=== PATIENT | female | born 1975 | race Caucasian/White ===

== ENCOUNTER 2018-11-12 16:30 | Outpatient (CLI) | payer OTHER ==
[2018-11-12 19:37] LABS: BILIRUBIN,URINE NEGATIVE (NEGATIVE); GLUCOSE, URINE (UA) NEGATIVE (NEGATIVE); KETONES,URINE (UA) NEGATIVE (NEGATIVE); LEUKOCYTE ESTERASE, URINE MODERATE (NEGATIVE); NITRITE,URINE NEGATIVE (NEGATIVE); OCCULT BLOOD,URINE TRACE-INTA (NEGATIVE); PROTEIN,URINE NEGATIVE (NEGATIVE); UROBILINOGEN,URINE 0.2 (NORMAL) E.U./dL (NORMAL)
[2018-11-12 20:15] LABS: BACTERIA,URINE Few /HPF (None Seen); CLARITY,URINE HAZY (CLEAR); RBC,URINE 0-5 /HPF (0-5); SQUAMOUS EPITHELIAL CELL,UR RARE Squamous (<= Few)
== END 2018-11-12 23:59 | disposition home or self-care (01) ==
LOC: LAB.R 16:30
PROVIDERS: ATTEND Physician Assistant Medical
DX: N39.0 Urinary tract infection, site not specified (principal)
CPT/HCPCS: 81001; 87086; 87181

== ENCOUNTER 2019-05-26 16:43 | Outpatient (CLI) | payer OTHER ==
--- NOTE | 2019-05-31 12:16 | Mammography Report ---
Reason: SCREENING MAMMO Procedure Date: 05/26/2019 Accession Number: [id number] / [id number] Procedure: PATRICA - Screening Mammo w/Roberto CPT Code: FULL RESULT: EXAM: Screening Mammo w/Roberto DATE: 05/26/2019 5:24 PM CLINICAL HISTORY: Screening encounter. History of early menses and family history of breast cancer in the mother at the age of 65. TECHNIQUE: (B) - Bilateral CC, laterally exaggerated CC, MLO views were obtained. COMPARISON: 01/23/2016. PARENCHYMAL PATTERN: (D) - The breast(s) demonstrate(s) heterogeneously dense fibroglandular parenchyma. FINDINGS: In the right central lower breast, defined only on 3-D imaging are to isodense nodules, the first 3.3 cm from the nipple measuring 1 cm and the second 5.3 cm from the nipple measuring 1 cm as seen on CC projection image 26 as well as on right MLO projection image 21 and 15 respectively. In the left lower central breast, similarly partially obscured but best seen on the left 3-D cc projection 4.7 cm from the nipple are 2 isodense focal asymmetry is measuring 1.0 x 1.6 cm in the outer lower breast and 1.4-0.9 cm in the lower inner breast respectively as seen on left CC image 38 and left MLO image 23. These bilateral findings are previously occult and they are not readily visible on today's large paddle 2-D projections. Therefore, additional clarification by spot views and ultrasound of both breasts is required. IMPRESSION: Incomplete examination. BI-RADS category 0. RECOMMENDATION: (ADDMU) - Additional views using both Mammography and Ultrasound recommended. Both breasts as described. BI-RADS CATEGORY: (0) - Incomplete Examination - need additional evaluation. STANDARD QUALIFYING STATEMENTS: 1. This examination was not reviewed with the aid of Computer-Aided Detection (CAD). 2. A negative or benign imaging report should not preclude biopsy if clinically suspicious findings are present. 3. Dense breasts may obscure an underlying neoplasm. 4. This examination was reviewed with the aid of 3D breast imaging (tomosynthesis).
== END 2019-05-26 16:44 | disposition home or self-care (01) ==
LOC: DI 16:43
DX: Z12.31 Encounter for screening mammogram for malignant neoplasm of breast (principal); Z80.3 Family history of malignant neoplasm of breast
CPT/HCPCS: 77063; 77067

== ENCOUNTER 2019-06-15 09:54 | Outpatient (CLI) | payer OTHER ==
--- NOTE | 2019-06-15 12:38 | Mammography Report ---
Reason: ABNORMAL MAMMOGRAM Procedure Date: 06/15/2019 Accession Number: [id number] / [id number] Procedure: PATRICA - Diag Special Views Dig Bilat CPT Code: FULL RESULT: EXAM: Diag Special Views Dig Bilat DATE: 06/15/2019 11:05 AM CLINICAL HISTORY: Diagnostic examination. The patient is recalled from screening for bilateral well-circumscribed nodules. TECHNIQUE: (B) - Bilateral spot CC and spot MLO as well as ML images are obtained. Bilateral focused ultrasound is performed. COMPARISON: 05/26/2019 through 01/23/2016. PARENCHYMAL PATTERN: (D) - The breast(s) demonstrate(s) heterogeneously dense fibroglandular parenchyma. FINDINGS: Spot imaging does not further characterize the identified nodules. Focused bilateral breast ultrasound is performed which confirms multiple wider than tall simple appearing typically benign cysts with increased through transmission. In the right breast at the 8:00 position 6 cm from the nipple is a 0.8 x 0.4 x 0.9 cm cyst immediately adjacent to a 1.2 x 0.5 x 1.4 cm cyst. In the left breast in the upper outer quadrant 4 cm from the nipple on multiple simple appearing cysts the largest of which measures 1.1 x 0.7 x 1.2 cm with immediately adjacent cyst measuring 0.9 x 0.6 x 0.8 cm. These correspond to mammographic findings. There are no suspicious masses, calcifications, or areas of distortion. IMPRESSION: Benign findings. BI-RADS category 2. RECOMMENDATION: (ANNUAL) - Recommend routine annual screening mammography. BI-RADS CATEGORY: (2) - Benign Findings. STANDARD QUALIFYING STATEMENTS: 1. This examination was not reviewed with the aid of Computer-Aided Detection (CAD). 2. A negative or benign imaging report should not preclude biopsy if clinically suspicious findings are present. 3. Dense breasts may obscure an underlying neoplasm. 4. This examination was reviewed with the aid of 3D breast imaging (tomosynthesis).
== END 2019-06-15 09:55 | disposition home or self-care (01) ==
LOC: DI 09:54
PROVIDERS: ATTEND Physician Assistant
DX: N63.20 Unspecified lump in the left breast, unspecified quadrant (principal); N63.10 Unspecified lump in the right breast, unspecified quadrant; R92.8 Other abnormal and inconclusive findings on diagnostic imaging of breast
CPT/HCPCS: 76642; 77066

== ENCOUNTER 2019-08-31 10:06 | Outpatient (CLI) | payer OTHER ==
--- NOTE | 2019-08-31 10:10 | XRAY Report ---
Reason: LEFT ANKLE PAIN Procedure Date: 08/31/2019 Accession Number: [id number] / [id number] Procedure: WCP - Ankle 3 View LT CPT Code: FULL RESULT: EXAM: LEFT ANKLE RADIOGRAPHY EXAM DATE: 08/31/2019 10:06 AM. CLINICAL HISTORY: Chronic left ankle pain. COMPARISON: None. TECHNIQUE: 3 views. FINDINGS: Bones: Minimal inferior calcaneal spurring. No fractures or bone lesions. Joints: Normal. No effusion. No subluxations. The ankle mortise is normally aligned. Soft Tissues: Normal. No soft tissue swelling. IMPRESSION: No advanced degenerative changes and no fracture or dislocation. RADIA
== END 2019-08-31 23:59 | disposition home or self-care (01) ==
LOC: DI.WCP 10:06 → EDSTATUS 12:34 → DI.WCP 23:59
PROVIDERS: ATTEND Physician Assistant
DX: M25.572 Pain in left ankle and joints of left foot (principal)

== ENCOUNTER 2020-01-29 08:58 | Outpatient (CLI) | payer OTHER | END 2020-01-29 08:59 | disposition home or self-care (01) | LOC: DI 08:58 | PROVIDERS: ATTEND Physician Assistant | DX: R07.89 Other chest pain (principal); Z82.49 Family history of ischemic heart disease and other diseases of the circulatory system | CPT/HCPCS: 93306 ==

== ENCOUNTER 2020-06-08 13:47 | Outpatient (CLI) | payer OTHER ==
--- NOTE | 2020-06-08 16:04 | CARDIAC PROCEDURE NOTE ---
DATE OF SERVICE: 06/08/2020 Physician: Romina Samson MD, [facility] INDICATION: Chest pain. CARDIAC RISK FACTORS: Family history of heart disease (grandmother had CA at age under 40, mother had a cardiac arrest and has a defibrillator), possibly untreated hypertension. DESCRIPTION OF PROCEDURE: After signing informed consent, the patient underwent a Cory-protocol treadmill stress test. No imaging was ordered with this test. RESTING HEART RATE: 84. PEAK HEART RATE: 158 (90% predicted maximum heart rate for age). RESTING BLOOD PRESSURE: 159/111. PEAK BLOOD PRESSURE: 201/86. The patient exercised for 6 minutes on a Cory-protocol treadmill. She achieved a peak heart rate of 158 (90% PMHR) and 7.1 METS. The patient had mild shortness of breath. No chest pain occurred. Oxygen saturation was 97-98% on room air throughout the test. The patient rated her perceived exertion at 14/20 on the Bryon scale at peak. RESTING EKG: Normal sinus rhythm, within normal limits. EKG AT PEAK: Diffuse upsloping ST segment depressions. SUMMARY: 1. Normal resting electrocardiogram. 2. No chest pain developed with exercise. 3. Nonspecific EKG changes, not suggestive of ischemia, occur with exercise at a good level of stress. 4. No imaging was ordered with this test. 5. Blood pressure was poorly controlled throughout the test (see above) and needs medical management for better control. cc: Maggie Mayen PA-C TD: 06/08/2020 15:06 MTDD
== END 2020-06-08 13:48 | disposition home or self-care (01) ==
LOC: DI 13:47
PROVIDERS: ATTEND Physician Assistant
DX: I10 Essential (primary) hypertension (principal); Z82.49 Family history of ischemic heart disease and other diseases of the circulatory system
CPT/HCPCS: 93017

== ENCOUNTER 2020-09-27 09:33 | Outpatient (CLI) | payer OTHER ==
--- NOTE | 2020-09-28 13:22 | Mammography Report ---
BILATERAL DIGITAL SCREENING MAMMOGRAM 3D/2D: 09/27/2020 CLINICAL: Family history of breast cancer. Routine screening. Comparison is made to exams dated: 06/15/2019 ultrasound, 06/15/2019 mammogram, and 01/23/2016 mammogram - [facility]. The tissue of both breasts is heterogeneously dense. This may lower the sensitivity of mammography. No significant masses, calcifications, or other findings are seen in either breast. There has been no significant interval change. IMPRESSION: NEGATIVE There is no mammographic evidence of malignancy. A 1 year screening mammogram is recommended. This exam was interpreted at Station ID: [id number]. NOTE: For mammograms, a report in lay terms will be sent to the patient. Approximately 15% of breast malignancies will not be visualized mammographically. In the management of a palpable breast mass, a negative mammogram must not discourage biopsy of a clinically suspicious lesion. Electronically Signed By: Sarah mckeon/jason:09/27/2020 12:09:55 ACR BI-RADS Category 1: Negative 3341F PARENCHYMAL PATTERN: (D) - The breast(s) demonstrate(s) heterogeneously dense fibroglandular ani vyas. BI-RADS CATEGORY: (1) - 1 RECOMMENDATION: (ANNUAL) - Recommend routine annual screening mammography. [id number] 1 year screening LATERALITY: (B)
== END 2020-09-27 09:34 | disposition home or self-care (01) ==
LOC: DI.N 09:33
DX: Z12.31 Encounter for screening mammogram for malignant neoplasm of breast (principal); Z80.3 Family history of malignant neoplasm of breast
CPT/HCPCS: 77063; 77067

== ENCOUNTER 2020-09-27 09:57 | Outpatient (CLI) | payer OTHER ==
[2020-09-27 12:16] LABS: BASOPHILS # (AUTO) 0.1 10^3/uL (0.0-0.1); BASOPHILS % (AUTO) 1.1 %; EOSINOPHILS # (AUTO) 0.1 10^3/uL (0.0-0.7); EOSINOPHILS % (AUTO) 1.8 %; HGB - HEMOGLOBIN 13.9 g/dL (12.0-16.0); LYMPHOCYTES # (AUTO) 1.4 10^3/uL (1.5-3.5); LYMPHOCYTES % (AUTO) 31.9 %; MEAN CORPUSCULAR HEMOGLOBIN 28.8 pg (27.0-31.0); MEAN CORPUSCULAR HGB CONC 33.3 g/dL (32.0-36.0); MEAN CORPUSCULAR VOLUME 86.5 fL (81.0-99.0); MEAN PLATELET VOLUME 11.5 fL (7.9-10.8); MONOCYTES # (AUTO) 0.4 10^3/uL (0.0-1.0); MONOCYTES % (AUTO) 8.7 %; NEUTROPHILS # (AUTO) 2.5 10^3/uL (1.5-6.6); NEUTROPHILS % (AUTO) 56.3 %; PLT - PLATELET COUNT 276 10^3/uL (130-450); RED BLOOD COUNT 4.82 10^6/uL (4.20-5.40); RED CELL DISTRIBUTION WIDTH 12.8 % (12.0-15.0); WHITE BLOOD COUNT 4.4 x10^3/uL (4.8-10.8)
[2020-09-27 14:23] LABS: ALBUMIN 4.2 g/dL (3.2-5.5); ALBUMIN/GLOBULIN RATIO 1.4 (1.0-2.2); ALKALINE PHOSPHATASE 39 IU/L (42-121); ALT ALANINE AMINOTRANSFERASE < 10 IU/L (10-60); AST ASPARTATE AMINOTRANSFERASE 17 IU/L (10-42); BILIRUBIN,TOTAL 0.7 mg/dL (0.2-1.0); BUN - BLOOD UREA NITROGEN 11 mg/dL (6-20); CARBON DIOXIDE - CO2 25 mmol/L (21-32); CHLORIDE 100 mmol/L (101-111); CHOL/HDL RATIO 5.2 (<4.4); CHOLESTEROL 236 mg/dL; CREATININE 0.8 mg/dL (0.4-1.0); GLUCOSE 94 mg/dL (70-100); HDL CHOLESTEROL 45 mg/dL; LDL CHOLESTEROL,CALCULATED 169 mg/dL; LDL/HDL RATIO 3.8 (<4.4); SODIUM 138 mmol/L (135-145); TOTAL PROTEIN 7.2 g/dL (6.7-8.2); VLDL CHOLESTEROL 22 mg/dL
== END 2020-09-27 09:58 | disposition home or self-care (01) ==
LOC: LAB.N 09:57
PROVIDERS: ATTEND Physician Assistant
DX: Z00.00 Encounter for general adult medical examination without abnormal findings (principal)
CPT/HCPCS: 36415; 80053; 80061; 83036; 83721; 84443; 85025

== ENCOUNTER 2020-09-27 18:41 | Outpatient (CLI) | payer OTHER ==
--- NOTE | 2020-09-28 09:11 | Ultrasound Report ---
PROCEDURE: Pelvic w/Transvaginal INDICATIONS: MENORRHAGIA TECHNIQUE: Real-time scanning was performed of the pelvic organs, with image documentation. Additional endovagi nal scanning was necessary due to incomplete visualization of the adnexal and endometrial structures by transabdominal scanning. COMPARISON: None. FINDINGS: Transabdominal scanning: Limited scanning through the kidneys shows no hydronephrosis. No pathologi c free abdominal or pelvic fluid. Endovaginal scanning: Uterus: Uterus is normal in size at 9.6 x 4.7 x 5.4 cm. The endometrium measures 14 mm in combined thickness. The uterus is anteverted. Uterine echotexture is mildly heterogenous. A nabothian cyst is identified. Ovaries: The right ovary measures 3.4 x 1.3 x 2.6 cm. There are less than 12 follicles. The left ova ry measures 4.1 x 2.4 x 3.2 cm. There are less than 12 follicles. A dominant follicle on the left evaristo sures 1.7 x 1.6 x 1.8 cm. No adnexal free fluid. IMPRESSION: 1. No acute ultrasound abnormality. 2. Endometrial thickness is 14 mm which is at the upper limits of normal for a premenopausal woman du ring the secretory phase. 3. No evidence of polycystic ovarian syndrome. Reviewed by: Johnie Phelps on 09/28/2020 9:10 AM [facility] Approved by: Johnie Phelps on 09/28/2020 9:10 AM [facility] Station ID: [id number]
== END 2020-09-27 18:42 | disposition home or self-care (01) ==
LOC: DI 18:41
PROVIDERS: ATTEND Physician Assistant
DX: Z00.00 Encounter for general adult medical examination without abnormal findings (principal); N92.0 Excessive and frequent menstruation with regular cycle; R93.89 Abnormal findings on diagnostic imaging of other specified body structures
CPT/HCPCS: 36415; 76830; 76856; 80053; 80061; 83036; 83721; 84443; 85025

== ENCOUNTER 2020-11-06 08:00 | Outpatient (CLI) | payer OTHER ==
[2020-11-09 09:19] LABS: CLARITY,URINE CLEAR (CLEAR); LEUKOCYTE ESTERASE, URINE MODERATE (NEGATIVE); NITRITE,URINE NEGATIVE (NEGATIVE); PROTEIN,URINE NEGATIVE (NEGATIVE); UROBILINOGEN,URINE 0.2 (NORMAL) E.U./dL (NORMAL)
[2020-11-09 09:21] LABS: BILIRUBIN,URINE NEGATIVE (NEGATIVE); GLUCOSE, URINE (UA) NEGATIVE (NEGATIVE); KETONES,URINE (UA) NEGATIVE (NEGATIVE); OCCULT BLOOD,URINE NEGATIVE (NEGATIVE)
[2020-11-09 09:22] LABS: BACTERIA,URINE Few /HPF (None Seen); RBC,URINE None Seen /HPF (0-5); SQUAMOUS EPITHELIAL CELL,UR FEW Squamous (<= Few)
== END 2020-11-06 23:59 | disposition home or self-care (01) ==
LOC: LAB.N 08:00
PROVIDERS: ATTEND Family Medicine
DX: N39.0 Urinary tract infection, site not specified (principal)
CPT/HCPCS: 81001; 81003; 87086; 87181

== ENCOUNTER 2021-12-02 21:11 | Emergency (ER) | payer OTHER ==
--- NOTE | 2021-12-02 21:38 | ED Physician Documentation ---
History of Present Illness - Stated complaint Stated Complaint: LT ARM PX - Chief complaint Chief Complaint: Ext Problem - History obtained from History obtained from: Patient - History of Present Illness Timing: Enter time (05:15), Today Pain level now: 2 Improved by: no ameliorating factors Worsened by: no exacerbating factors - Additonal information Additional information: woke from sleep at approximately 5:15 AM this morning with pain left lateral aspect of elbow and forearm, radiating down to fingers, predominantly thumb an second and third digits. denies injury, denies h/o similar symptoms. She is right hand dominant. Denies weakness, numbness. Review of Systems Cardiac: reports: Reviewed and negative Skin: denies: Rash Musculoskeletal: reports: Extremity pain. denies: Neck pain, Extremity swelling Neurologic: denies: Focal weakness, Numbness PD PAST MEDICAL HISTORY - Past Medical History Past Medical History: No - Present Medications Home Medications: Ambulatory Orders Medication Instructions Recorded Confirmed Acyclovir 400 mg PO BID 12/02/21 12/02/21 - Allergies Allergies/Adverse Reactions: Allergies Allergy/AdvReac Type Severity Reaction Status Date / Time meloxicam Allergy Edema Verified 12/02/21 21:20 PD ED PE NORMAL - Vitals Vital signs reviewed: Yes - General General: Alert and oriented X 3, No acute distress, Well developed/nourished - Neck Neck: No bony TTP - Cardiac Cardiac: RRR, No murmur - Derm Derm: No rash - Extremities Extremities: No edema - Neuro Neuro: No motor deficit (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 distribution would suggest median nerve impingement. emergent testing is not indicated at this time, but I advised her to follow up with PMD if symptoms persist, as testing might be indicated in outpatient setting (such as EMG). Although she denies any chest pain, she has significant family cardiac history and thus screening EKG performed (this is without remarkable / concerning findings) .Differential discussed with patient , advised to return if worse, ibuprofen for discomfort, and follow up with PMD Departure - Departure Disposition: 01 Home, Self Care Clinical Impression: Median nerve compression Condition: Good Instructions: ED Carpal Tunnel Follow-Up: Maggie Mayen PA [Primary Care Provider] - Discharge Date/Time: 12/02/21 22:31
[2021-12-02 22:32] VITALS: BP 130/88
== END 2021-12-02 22:31 | disposition home or self-care (01) ==
LOC: ED 21:11
DX: G56.02 Carpal tunnel syndrome, left upper limb (principal); Z82.49 Family history of ischemic heart disease and other diseases of the circulatory system
CPT/HCPCS: 93005; 99282; 99283

== ENCOUNTER 2022-12-04 15:26 | Outpatient (CLI) | payer OTHER ==
--- NOTE | 2022-12-06 11:08 | Mammography Report ---
BILATERAL DIGITAL SCREENING MAMMOGRAM 3D/2D: 12/04/2022 CLINICAL: Family history of breast cancer. Routine screening. Comparison is made to exams dated: 09/27/2020 mammogram, 06/15/2019 ultrasound, 06/15/2019 mammogram, and 01/23/2016 mammogram - [facility]. Both breasts are heterogeneously dense, which may obscure small masses (category c / 51-75% glandular tissue). No significant masses, calcifications, or other findings are seen in either breast. There has been no significant interval change. IMPRESSION: NEGATIVE There is no mammographic evidence of malignancy. A 1 year screening mammogram is recommended. Based on Tyrer-Cuzick model (a risk assessment model), the patient's lifetime risk is 21.0% and her 1 0 year risk is 4.4%. If a patient has an elevated risk, a more comprehensive evaluation should be con sidered and/or a referral to a genetic counselor. The [employer], [employer], and NCCN Guidelines advise the consideration of Breast MRI as an adjunct to screening mammog stephanie in patients whose "Lifetime risk to develop breast cancer" is 20% or higher. This exam was interpreted at Station ID: [id number]. NOTE: For mammograms, a report in lay terms will be sent to the patient. Approximately 15% of breast malignancies will not be visualized mammographically. In the management of a palpable breast mass, a negative mammogram must not discourage biopsy of a clinically suspicious lesion. Electronically Signed By: Juani amaya/jason:12/05/2022 19:09:10 ACR BI-RADS Category 1: Negative 3341F PARENCHYMAL PATTERN: (D) - The breast(s) demonstrate(s) heterogeneously dense fibroglandular parenchy ma. BI-RADS CATEGORY: (1) - 1 RECOMMENDATION: (ANNUAL) - Recommend routine annual screening mammography. [id number] 1 year screening LATERALITY: (B)
== END 2022-12-04 15:27 | disposition home or self-care (01) ==
LOC: DI.N 15:26
PROVIDERS: ATTEND Family Medicine
DX: Z12.31 Encounter for screening mammogram for malignant neoplasm of breast (principal); Z80.3 Family history of malignant neoplasm of breast

== ENCOUNTER 2023-12-30 15:48 | Outpatient (CLI) | payer OTHER ==
--- NOTE | 2023-12-31 10:34 | Ultrasound Report ---
PROCEDURE: Pelvic w/Transvaginal INDICATIONS: PELVIC PAIN TECHNIQUE: Real-time scanning was performed of the pelvic organs, with image documentation. Additional endovagi nal scanning was necessary due to incomplete visualization of the adnexal and endometrial structures by transabdominal scanning. COMPARISON: Pelvic ultrasound 09/27/2020. FINDINGS: Uterus: Uterus is anteverted and mildly enlarged at 10.8 x 4.6 x 5.2 cm. The myometrium is heterogen eous. The endometrium measures 16 mm in combined thickness. Echogenic lesion is seen within the sup erior endometrium, measuring 1.9 x 1.6 x 1.4 cm. No definite internal vascularity is seen. Ovaries: The right ovary measures 2.6 x 1.4 x 2.1 cm, with a calculated ovarian volume of 4.0 cc. T he left ovary measures 4.6 x 2.8 x 4.7 cm, with a calculated ovarian volume of 31.8 cc. Multiple simp le appearing left ovarian cyst is seen, largest of which measures up to 2.3 cm in size. The ovaries h ave a normal sonographic appearance. Less than 12 follicles can be seen in each ovary. No adnexal m asses are seen. No cystic lesions measuring greater than 3 cm. Other: No pathologic free abdominal or pelvic fluid. IMPRESSION: 1.Echogenic 1.9 cm lesion at the superior aspect of the endometrium without internal vascularity, whi ch may represent blood products versus an endometrial polyp or focal endometrial hyperplasia. Recomme nd Gynecology consultation. 2.Left ovary is enlarged by multiple simple cysts/follicles. Reviewed by: Gilbert Danielle MD on 12/31/2023 10:33 AM [facility] Approved by: Gilbert Danielle MD on 12/31/2023 10:33 AM PST Station ID: [id number]
== END 2023-12-30 15:49 | disposition home or self-care (01) ==
LOC: DI 15:48
PROVIDERS: ATTEND Family Medicine
DX: R10.2 Pelvic and perineal pain (principal); N92.0 Excessive and frequent menstruation with regular cycle; R93.89 Abnormal findings on diagnostic imaging of other specified body structures; N83.8 Other noninflammatory disorders of ovary, fallopian tube and broad ligament

== ENCOUNTER 2024-02-21 14:27 | Outpatient (CLI) | payer OTHER ==
[2024-02-21 18:43] LABS: BASOPHILS # (AUTO) 0.1 10^3/uL (0.0-0.1); BASOPHILS % (AUTO) 1.6 %; EOSINOPHILS # (AUTO) 0.1 10^3/uL (0.0-0.7); EOSINOPHILS % (AUTO) 1.4 %; HCT - HEMATOCRIT 42.1 % (37.0-47.0); HGB - HEMOGLOBIN 13.9 g/dL (12.0-16.0); LYMPHOCYTES # (AUTO) 1.9 10^3/uL (1.5-3.5); LYMPHOCYTES % (AUTO) 33.2 %; MEAN CORPUSCULAR HEMOGLOBIN 28.6 pg (27.0-31.0); MEAN CORPUSCULAR VOLUME 86.6 fL (81.0-99.0); MEAN PLATELET VOLUME 11.5 fL (7.9-10.8); MONOCYTES # (AUTO) 0.4 10^3/uL (0.0-1.0); MONOCYTES % (AUTO) 7.7 %; NEUTROPHILS # (AUTO) 3.2 10^3/uL (1.5-6.6); NEUTROPHILS % (AUTO) 55.8 %; PLT - PLATELET COUNT 300 10^3/uL (130-450); RED BLOOD COUNT 4.86 10^6/uL (4.20-5.40); RED CELL DISTRIBUTION WIDTH 12.7 % (12.0-15.0); WHITE BLOOD COUNT 5.8 x10^3/uL (4.8-10.8)
== END 2024-02-21 14:28 | disposition home or self-care (01) ==
LOC: LAB.N 14:27
PROVIDERS: ATTEND Obstetrics & Gynecology
DX: Z01.812 Encounter for preprocedural laboratory examination (principal); N93.9 Abnormal uterine and vaginal bleeding, unspecified
CPT/HCPCS: 36415; 85025

== ENCOUNTER 2024-02-24 07:21 | Day surgery (SDC) | payer OTHER ==
[2024-02-24] MEDS ORDERED: BUPIVACAINE 0.5% PF 10 ML VIAL ONE (07:28)
[2024-02-24] MEDS ORDERED: LIDOCAINE 1%-EPI 1:100000 20 ML MDV ONE (07:28)
[2024-02-24] MEDS ORDERED: SILVER NITRATE APPLICATOR TOP ONE (07:28)
[2024-02-24] MEDS: LACTATED RINGERS 1,000 ML IV ONE ×2 (07:43→09:17)
[2024-02-24 07:49] LABS: HCG UR QUAL NEGATIVE
--- NOTE | 2024-02-24 07:53 | ANESTHESIA ---
Pre-Anesthesia VS, & Labs - Diagnosis abnormal uterine bleeding - Procedure hysteroscopy D&C Height: 4 ft 11 in - NPO >8 hours - Is Patient ?: No Home Medications and Allergies Home Medications: Ambulatory Orders Spironolactone [Aldactone] 50 mg PO DAILY 02/20/24 Spironolactone [Aldactone] 50 mg PO DAILY 02/20/24 Allergies/Adverse Reactions: Allergies Allergy/AdvReac Type Severity Reaction Status Date / Time meloxicam Allergy Edema Verified 02/24/24 06:25 Anes History & Medical History - Anesthetic History Anesthesia Complications: reports: No previous complications Family history of Anesthesia Complications: Denies Family history of Malignant Hyperthermia: Denies - Medical History Cardiovascular: reports: Hypertension Pulmonary: reports: None Gastrointestinal: reports: None Urinary: reports: None Neuro: reports: None Musculoskeletal: reports: None Endocrine/Autoimmune: reports: None Skin: reports: None Psychosocial: reports: No issues indicated - Surgical History General: reports: Other Eyes Ears Nose Throat (EENT): reports: Other Gynecologic: reports: Tubal ligation Exam General: Alert, Oriented x3, Cooperative Dental: WNL Mouth Openin Fingerbreadth Neck Mobility: Normal Mallampati classification: I Thyromental Distance: 4-6 cm Respiratory: Lungs clear Cardiovascular: Regular rate Plan Anesthesia Type: General Consent for Procedure(s) Verified and Reviewed: Yes Code Status: Attempt Resuscitation ASA classification: 2-Mild systemic disease Is this case an emergency?: No
[2024-02-24] MEDS ORDERED: ePHEDrine 50 MG/ML VIAL IVP PRN (08:08)
[2024-02-24] MEDS ORDERED: ATROPINE ABBOJECT 1 MG/10 ML SYRINGE IVP PRN (08:08)
[2024-02-24] MEDS ORDERED: HYDROmorphone 0.5 MG/0.5 ML SYRINGE IVP PRN (08:08)
[2024-02-24] MEDS ORDERED: fentaNYL 100 MCG/2 ML VIAL IVP PRN (08:08)
[2024-02-24] MEDS ORDERED: ONDANSETRON 4 MG/2 ML VIAL IVP PRN (08:08)
[2024-02-24] MEDS ORDERED: METOCLOPRAMIDE 10 MG/2 ML VIAL IVP PRN (08:08)
[2024-02-24] MEDS ORDERED: MORPHINE 2 MG/ML CARPUJECT IVP PRN (08:08)
[2024-02-24] MEDS ORDERED: NALOXONE 0.4 MG/ML VIAL IVP PRN (08:08)
--- NOTE | 2024-02-24 08:31 | HISTORY & PHYSICAL EXAMINATION ---
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
[2024-02-24] MEDS ORDERED: MIDAZOLAM 2 MG/2 ML VIAL ONE (08:34)
[2024-02-24] MEDS ORDERED: fentaNYL 100 MCG/2 ML VIAL ONE (08:34)
[2024-02-24] MEDS ORDERED: PROPOFOL 200 MG/20 ML VIAL IVP ONE (08:34)
[2024-02-24] MEDS ORDERED: LIDOCAINE-PF 2% 10 ML AMP SUBQ ONE (08:34)
[2024-02-24] MEDS ORDERED: LACTATED RINGERS 1,000 ML IV SCH (09:00)
[2024-02-24] MEDS ORDERED: ONDANSETRON 4 MG/2 ML VIAL ONE (09:07)
--- NOTE | 2024-02-24 09:19 | OPERATIVE REPORT ---
Operative Report - General Procedure Date: 02/24/24 Planned Procedure: Hysteroscopy, D&C, polypectomy Pre-Op Diagnosis: Abnormal uterine bleeding Procedure Performed: Hysteroscopy, D&C, polypectomy Post Op Diagnosis: Abnormal Uterine Bleeding - Procedure Note Primary Surgeon: Ramos Schafer MD Anesthesia Provider: Christa Knott CRNA Anesthesia Technique: General LMA IV Fluids (mL): 300 Estimated Blood Loss (mL): 10 Urine Output (mL): 0 (Voided prior to procedure) Findings: Uterus normal in size. Cervix non-stenotic. Proliferative appearing endometrium with polypoid mass in the posterior left uterine wall. Possible polyp in the anterior right. Complications: None - Other Other Information/Narrative: Patient was taken to the procedure room and placed in dorsal lithotomy position. Hibiclens was used to clean the operative area.Time out was taken. Ely speculum was palced in the vagina and the cervix was visualized. The anterior lip the cervix was grasped with a single-tooth tenaculum. 5ml of local anesthesia was injeced near the uterosacral ligaments. The cervix was non- stenotic and allowed the easy passage of dilators. Hysteroscope was then used to hydrodilate using normal saline distention media. Hysteroscope was advanced without difficulty using hydrodistention. Cervical canal was noted to have no abnormalities. Upon entry into the internal cervical os there was noted to be proliferative endometrium within the uterus. She did have a polypoid appearing lesion on the posterior left edge, near the entrance of the cervical os. She had another anterior right mass that was polypoid versus proliferative material. These were dissected with the MyoSure device. Bilateral tubal ostia were noted. Hysteroscope was then removed. A sharp curetting was then performed, attempted to sample all areas of the uterus. This was collected on a Telfa. Tenaculum was then removed from the cervix noted to be hemostatic. All instruments removed from the vagina Fluid deficit 55 mL.
[2024-02-24 10:09] VITALS: O2SAT 99
[2024-02-24 10:39] VITALS: BP 123/84
--- NOTE | 2024-02-24 11:20 | ANESTHESIA POST OP EVALUATION ---
Anesthesia Post Eval - Post Anesthesia Eval Vitals: Last Vital Signs Temp 36.3 C L 02/24/24 10:00 Pulse 63 02/24/24 10:15 Resp 16 02/24/24 10:15 BP 123/84 H 02/24/24 10:15 Pulse Ox 99 02/24/24 10:15 O2 Flow Rate CV Function Including HR & BP: Stable Pain Control: Satisfactory Nausea & Vomiting: Negative Mental Status: Baseline Respiratory Status: Airway Patent Hydration Status: Satisfactory Anesthesia Complications: None
== END 2024-02-24 07:22 | disposition home or self-care (01) ==
LOC: SDS 07:21
PROVIDERS: ATTEND Obstetrics & Gynecology
PROC: 0UB98ZZ Excision of Uterus, Via Natural or Artificial Opening Endoscopic (ICD-10-PCS; 2024-02-24)
PROC: 0UDB8ZZ Extraction of Endometrium, Via Natural or Artificial Opening Endoscopic (ICD-10-PCS; principal; 2024-02-24 08:30)
DX: N93.9 Abnormal uterine and vaginal bleeding, unspecified (principal); N85.8 Other specified noninflammatory disorders of uterus; I10 Essential (primary) hypertension; Z32.02 Encounter for pregnancy test, result negative
CPT/HCPCS: 58558; 81025; J7120

== ENCOUNTER 2024-04-15 08:33 | Emergency (ER) | payer OTHER ==
--- NOTE | 2024-04-15 10:05 | ED Physician Documentation ---
History of Present Illness - Stated complaint Stated Complaint: LT ARM PX - Chief complaint Chief Complaint: Ext Problem - History obtained from History obtained from: Patient - Additonal information Additional information: The patient comes to the emergency department chief complaint of left forearm pain for the last couple of days some thumb numbness today. She states she has a job when she uses her left upper extremity a lot, especially for typing. She is right-hand dominant and is not having any symptoms on the right side. The patient states that the pain is worse with certain positions or can be brought on with certain positions and can also be relieved with other positions. She states that she has not had any direct trauma to the area. No pain in her upper arm. She does have some left-sided neck pain that is been going on for a few weeks and has been causing some tension in her shoulder. The patient denies any chest pain or shortness of breath. She is otherwise fairly healthy. She states that she has gotten massage previously for her neck pain and this seems to have helped. 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, Tubal ligation HEENT: Other - Present Medications Home Medications: Ambulatory Orders Medication Instructions Recorded Confirmed Spironolactone [Aldactone] 50 mg PO DAILY 02/20/24 04/15/24 predniSONE [Deltasone] 10 mg PO [id number] #42 tab 04/15/24 - Allergies Allergies/Adverse Reactions: Allergies Allergy/AdvReac Type Severity Reaction Status Date / Time meloxicam Allergy Edema Verified 04/15/24 08:49 - Social History Does the pt smoke?: No Smoking Status: Never smoker Does the pt drink ETOH?: No Does the pt have substance abuse?: No PD ED PE NORMAL - Vitals Vital signs reviewed: Yes - General General: Alert and oriented X 3, No acute distress, Well developed/nourished - HEENT HEENT: Atraumatic, PERRL, EOMI, Moist mucous membranes - Neck Neck: Supple, no meningeal sign, Other (Some tenderness palpation over the left trapezius distribution.) - Cardiac Cardiac: Strong equal pulses - Respiratory Respiratory: No respiratory distress - Derm Derm: Normal color, Warm and dry, No rash - Extremities Extremities: No deformity, No tenderness to palpate, Normal ROM s pain, No edema, Other (Left upper extremity exam normal.) - Neuro Neuro: underwriting intern 2-12 intact, No motor deficit, No sensory deficit, Normal speech, Other (Equal medical sociologist strength bilaterally. Sensation intact. Otherwise neurologic exam is grossly intact.) - Psych Psych: Normal mood, Normal affect Results - Vitals Vitals: Vital Signs - 24 hr 04/15/24 08:44 Temperature 36.6 C Heart Rate 71 Respiratory 15 Rate Blood Pressure 157/84 H O2 Saturation 100 Oxygen O2 Source Room air PD Medical Decision Making - ED course Complexity details: considered differential, d/w patient ED course: I discussed with the patient that given the positional nature of her pain, the associated numbness, and the repetitive work she must do with that extremity, I suspect a radial nerve compression. The epicenter seems to be in her mid right forearm. However, she also has the neck pain and either 1 could be a source of the symptoms. I do not feel that the symptoms are likely due to indicate a cardiac or other visceral issue. We have discussed the need for avoidance of the activities, at least for now, that are causing this. As such, I have given the patient a work note for the last 2 days of this week, which will give her a total of 4 days of including the weekend. The symptoms have only been going on for the last couple of days, so I feel that it is likely that even a short extended break should help break the cycle. I will prescribe steroid course for the patient and have also recommended anti-inflammatories. We have discussed the need for follow-up with her primary doctor/provider if the symptoms become persistent or recurrent. Departure - Departure Disposition: Home, Self Care Clinical Impression: Muscle spasms of neck Radial nerve compression Qualifiers: Laterality: left Qualified Code(s): G56.32 - Lesion of radial nerve, left upper limb Condition: Stable Instructions: ED Carpal Tunnel Prescriptions: predniSONE [Deltasone] 10 mg PO [id number] #42 tab Comments: Your symptoms are most consistent with a nerve compression syndrome, most likely radial nerve. This can be compressed directly in the elbow or forearm, or it can be compressed at its roots up in the neck or shoulder. Your brain can interpret this pain anywhere along the tract and the interpretation is often vague. The most important aspect of treatment is to relieve pressure on the nerve. This means avoiding activities that cause your forearm to be tense or that place pressure on the musculature of the forearm. A course of steroids and anti-inflammatories can be helpful as well. A prescription for the steroids has been electronically transmitted to the [facility] pharmacy in [place]. You should also last picker some ibuprofen and take 600 mg every 6 hours along with this. Sometimes massage of the neck, shoulder, and affected arm can be helpful as well. Stretches can also help with the symptoms. If none of this seems to be doing the trick, then you will need to follow-up with your primary to discuss more in-depth testing and further treatment or specialty evaluation. Forms: PCP List, Activity restrictions
[2024-04-15 10:20] VITALS: BP 144/80; O2SAT 99
== END 2024-04-15 10:19 | disposition home or self-care (01) ==
LOC: ED 08:33
DX: G56.32 Lesion of radial nerve, left upper limb (principal); M62.838 Other muscle spasm
CPT/HCPCS: 99282; 99283

== ENCOUNTER 2024-08-11 08:00 | Outpatient (CLI) | payer OTHER ==
[2024-08-11 11:54] LABS: BASOPHILS # (AUTO) 0.1 10^3/uL (0.0-0.1); BASOPHILS % (AUTO) 1.6 %; EOSINOPHILS # (AUTO) 0.1 10^3/uL (0.0-0.7); EOSINOPHILS % (AUTO) 1.8 %; HCT - HEMATOCRIT 42.1 % (37.0-47.0); LYMPHOCYTES # (AUTO) 1.6 10^3/uL (1.5-3.5); LYMPHOCYTES % (AUTO) 31.6 %; MEAN CORPUSCULAR HEMOGLOBIN 28.9 pg (27.0-31.0); MEAN CORPUSCULAR HGB CONC 33.3 g/dL (32.0-36.0); MEAN PLATELET VOLUME 11.6 fL (7.9-10.8); MONOCYTES # (AUTO) 0.4 10^3/uL (0.0-1.0); MONOCYTES % (AUTO) 7.5 %; NEUTROPHILS # (AUTO) 2.8 10^3/uL (1.5-6.6); NEUTROPHILS % (AUTO) 57.1 %; PLT - PLATELET COUNT 314 10^3/uL (130-450); RED BLOOD COUNT 4.84 10^6/uL (4.20-5.40); WHITE BLOOD COUNT 4.9 x10^3/uL (4.8-10.8)
[2024-08-11 12:03] LABS: ESTIMATED AVERAGE GLUCOSE 94 mg/dL (70-100); HEMOGLOBIN A1c% 4.9 % (4.27-6.07)
[2024-08-11 12:21] LABS: % IRON SATURATION 10 % (20-50); ALBUMIN 4.5 g/dL (3.2-5.5); ALBUMIN/GLOBULIN RATIO 2.1 (1.0-2.2); ALKALINE PHOSPHATASE 46 IU/L (42-121); ALT ALANINE AMINOTRANSFERASE 10 IU/L (10-60); AST ASPARTATE AMINOTRANSFERASE 17 IU/L (10-42); BILIRUBIN,TOTAL 0.3 mg/dL (0.2-1.0); BUN - BLOOD UREA NITROGEN 14 mg/dL (6-20); CALCIUM 9.7 mg/dL (8.5-10.3); CARBON DIOXIDE - CO2 28 mmol/L (21-32); CHLORIDE 104 mmol/L (101-111); CHOL/HDL RATIO 5.2 (<4.4); CHOLESTEROL 262 mg/dL; CREATININE 0.8 mg/dL (0.6-1.3); GFR - MDRD 76 (>89); GLUCOSE 97 mg/dL (74-104); HDL CHOLESTEROL 50 mg/dL; IRON 47 ug/dL (50-212); LDL CHOLESTEROL,CALCULATED 177 mg/dL; LDL/HDL RATIO 3.5 (<4.4); POTASSIUM 4.1 mmol/L (3.5-4.5); SODIUM 138 mmol/L (135-145); TOTAL IRON BINDING CAPACITY 476 ug/dL (250-450); TOTAL PROTEIN 6.6 g/dL (6.4-8.9); TRANSFERRIN 340 mg/dL (203-362); TRIGLYCERIDES 175 mg/dL; VLDL CHOLESTEROL 35 mg/dL
[2024-08-11 12:26] LABS: THYROID STIMULATING HORMONE 0.98 uIU/mL (0.34-5.60)
[2024-08-11 12:32] LABS: FERRITIN 21.5 ng/mL (11.0-306.8)
[2024-08-12 08:11] LABS: PROGESTERONE 0.5 ng/mL (.)
== END 2024-08-11 23:59 | disposition home or self-care (01) ==
LOC: LAB.N 08:00
PROVIDERS: ATTEND Family Medicine
DX: R53.83 Other fatigue (principal); E03.9 Hypothyroidism, unspecified; R73.09 Other abnormal glucose; N93.8 Other specified abnormal uterine and vaginal bleeding; N95.1 Menopausal and female climacteric states; E78.1 Pure hyperglyceridemia
CPT/HCPCS: 36415; 80053; 80061; 82626; 82627; 82670; 82728; 83001; 83036; 83540; 83721; 84144; 84439; 84443; 84466; 84480; 84481; 84482; 85025